=== PATIENT | female | born 1985 | race Two or more races ===

== ENCOUNTER 2016-09-11 16:29 | Emergency (ER) | payer OTHER ==
[2016-09-11] MEDS ORDERED: LACTATED RINGERS 1,000 ML ONE (16:57)
[2016-09-11] MEDS ORDERED: ONDANSETRON 4 MG/2ML 2 ML VIAL ONE (16:57)
[2016-09-11 17:27] LABS: ABSOLUTE NEUTROPHIL COUNT 3.6 K/mm3 (1.8-7.7); BASO % 0.3 % (0.2-1.0); EOS # 0.2 (0.0-0.5); EOS % 2.3 % (0.9-2.9); HEMATOCRIT 37.7 % (37.0-47.0); HEMOGLOBIN 12.6 gm/l (12.0-16.0); IMM NEUT% 0.3 % (0-1); LYMPH # 2.1 (1.0-4.8); LYMPH % 31.6 % (15-45); MEAN CORPUSCULAR HEMOGLOBIN 30.7 pg (27.0-31.0); MEAN CORPUSCULAR HGB CONC 33.4 g/dl (33.0-37.0); MEAN PLATELET VOLUME 10.9 fl (7.4-10.4); MONO # 0.7 (0.0-0.8); MONO % 10.1 % (4-12); NEUT % 55.4 % (43-75); PLATELET COUNT 176 K/mm3 (130-400); RED CELL DISTRIBUTION WIDTH 13.2 % (11.5-14.5)
[2016-09-11 17:37] LABS: ALB/GLOB RATIO 1.4 (>1.0); ALBUMIN 4.1 gm/dL (3.5-5.7); CALCIUM 8.8 mg/dL (8.6-10.3); MAGNESIUM 1.9 mg/dL (1.9-2.7)
[2016-09-11] MEDS ORDERED: ACETAMINOPHEN 500 MG TABLET ONE (18:00)
[2016-09-11 18:27] LABS: URINE BILIRUBIN NEGATIVE (NEGATIVE); URINE BLOOD TRACE (NEGATIVE); URINE GLUCOSE (UA) NEGATIVE (NEGATIVE); URINE LEUKOCYTE ESTERASE NEGATIVE (NEGATIVE); URINE NITRITE NEGATIVE (NEGATIVE); URINE PROTEIN NEGATIVE (NEGATIVE); URINE UROBILINOGEN NORMAL (0-1 mg/dl)
[2016-09-11 18:30] LABS: URINE APPEARANCE CLEAR; URINE COLOR YELLOW
[2016-09-11 18:32] LABS: HCG,QUALITATIVE URINE NEGATIVE
== END 2016-09-11 19:25 | disposition home or self-care (01) ==
LOC: ED 16:29
DX: R11.2 Nausea with vomiting, unspecified (principal); R19.7 Diarrhea, unspecified
CPT/HCPCS: 83690; 81025; 85025; 80053; 83735; 81003; 99283 ×2; 96374; 96361 ×2; A9270; J2405; J7120